=== PATIENT | male | born 1980 | race Caucasian/White ===

== ENCOUNTER 2021-07-22 19:21 | Emergency (ER) | payer SELFPAY | END 2021-07-22 20:15 | disposition home or self-care (01) | LOC: ERS 19:21 | DX: S00.32XA Blister (nonthermal) of nose, initial encounter (principal); F17.210 Nicotine dependence, cigarettes, uncomplicated; X58.XXXA Exposure to other specified factors, initial encounter | CPT/HCPCS: 99283 ==

== ENCOUNTER 2023-02-01 16:26 | Emergency (ER) | payer SELFPAY ==
[2023-02-01] MEDS ORDERED: Lidocaine 1% PF 5 ML VIAL ONE (16:56)
[2023-02-01] MEDS ORDERED: cefTRIAXone (ROCEPHIN) 1 GM VIAL ONE (16:56)
== END 2023-02-01 17:16 | disposition home or self-care (01) ==
LOC: ERS 16:26
DX: L03.113 Cellulitis of right upper limb (principal); F17.210 Nicotine dependence, cigarettes, uncomplicated
CPT/HCPCS: 96374; J0696